=== PATIENT | female | born 1975 ===

== ENCOUNTER 2018-01-18 05:30 | Day surgery (SDC) | payer OTHER | END 2018-01-18 16:15 | disposition home or self-care (01) | LOC: CIR.AMB 05:30 | DX: N93.8 Other specified abnormal uterine and vaginal bleeding (principal) ==

== ENCOUNTER 2022-01-13 06:40 | Day surgery (SDC) | payer OTHER | END 2022-01-13 18:20 | disposition home or self-care (01) | LOC: CIR.AMB 06:40 | PROVIDERS: ATTEND Obstetrics & Gynecology | DX: N84.0 Polyp of corpus uteri (principal); Z20.822 Contact with and (suspected) exposure to COVID-19; G47.33 Obstructive sleep apnea (adult) (pediatric) ==